=== PATIENT | female | born 1955 | race Caucasian/White ===

== ENCOUNTER 2020-08-12 16:18 | Outpatient (REF) | payer MEDICARE, SELFPAY ==
[2020-08-12 19:27] LABS: Calculated LDL 158 mg/dL (<100); Cholesterol 261 mg/dL (<200); HDL Cholesterol 82 mg/dL (40-60); TSH 1.59 uIU/mL (0.36-3.74); Triglyceride 105 mg/dL (<150)
[2020-08-15 10:55] LABS: Hepatitis C Ab w Rflx HCV PCR Negative (Negative)
== END 2020-08-12 16:19 | disposition home or self-care (01) ==
LOC: NCHCN 16:18
PROVIDERS: PCP Internal Medicine; Visit Provider Internal Medicine
DX: D27.9 Benign neoplasm of unspecified ovary (principal); B97.7 Papillomavirus as the cause of diseases classified elsewhere; Z11.59 Encounter for screening for other viral diseases; E78.89 Other lipoprotein metabolism disorders; M81.0 Age-related osteoporosis without current pathological fracture
CPT/HCPCS: 80061; 86803; 84443